=== PATIENT | female | born 1990 | race Caucasian/White ===

== ENCOUNTER 2023-02-17 22:25 | Observation (INO) | payer OTHER ==
[~2023-02-17] VITALS: Ht 160 cm; Wt 72.0 kg
[2023-02-18] VITALS (7 sets, daily range): BP systolic 103–114; BP diastolic 52–75; PULSE 68–75; TEMP 98–98.5
[2023-02-18] MEDS ORDERED: PROZAC 20MG20 MG PO (01:26)
[2023-02-18] MEDS ORDERED: PROAIR HFA0.09 MG/AC IH (01:27)
[2023-02-18 02:24] LABS: BASO % 0.6 % (0.0-2.0); EOS # 0.1 K/mm3 (0.0-0.7); EOS % 0.7 % (0.0-4.0); GRAN # 2.7 K/mm3 (1.4-6.5); GRAN % 39.3 % (42.2-75.2); LYMPH # 3.5 K/mm3 (1.2-3.4); MEAN CELL VOLUME 90 fl (80.0-100.0); MEAN CORPUSCULAR HEMOGLOBIN 32 pg (27-31); MEAN CORPUSCULAR HGB CONC 36 g/dl (33.0-37.0); MEAN PLATELET VOLUME 10.8 fl (7.4-10.4); MONO # 0.6 K/mm3 (0.1-0.6); MONO % 8.1 % (1.7-9.3); PLATELET COUNT 212 K/mm3 (130-400); RED BLOOD COUNT 4.05 M/mm3 (4.10-5.30); REDCELL DISTRIBUTION WIDTH-CV 11.6 % (11.5-14.5)
[2023-02-18] MEDS ORDERED: CROLOM 10 ML10 ML OP (02:26)
[2023-02-18 02:27] LABS: HEMATOCRIT 36.4 % (37.0-47.0)
[2023-02-18] MEDS ORDERED: EPIPEN 2-PAK1 MG/ML IM (02:27)
[2023-02-18 02:45] LABS: ANION GAP 7 mmol/L (7-16); BLOOD UREA NITROGEN 8 mg/dL (7-19); CALCIUM 8.3 mg/dL (8.4-10.2); CARBON DIOXIDE 21 mmol/L (22-29); CHLORIDE 113 mmol/L (98-107); CREATININE, serum 0.74 mg/dL (0.57-1.11); GLUCOSE 89 mg/dL (70-99); POTASSIUM 3.6 mmol/L (3.5-4.5); SODIUM 141 mmol/L (136-145)
[2023-02-18 03:07] LABS: TSH w REFLEX 3.632 uIU/mL (0.350-4.940)
[2023-02-18 03:09] LABS: TROPONIN-I < 0.010 ng/mL (0.00-0.033)
--- NOTE | 2023-02-18 05:15 | NUR ---
PT ARRIVED WITH NO COMPAINTS OF PAIN, ABLE TO AMBULATE APPROPRIATLY, VSS ON ARRIVAL. TELE APPLIED.
--- NOTE | 2023-02-18 06:17 | NUR ---
LEFT MESSAGE ON CELL REGARDING A CONSULT AND TO CALL CHARGE PHONE WHEN MESSAGE IS RECIEVED.
--- NOTE | 2023-02-18 08:51 | NUR ---
PATRICIO met with the patient to discuss discharge plan. The patient lives on [address] with her , Mahesh (ph#[phone]), and their daughter and son. She reports independence with ADLs and does not have any DME. The patient receives primary care and her medications from [facility]. The patient does not have a DPOA-HC and she was not interested in completing one at this time. The patient plans to return home with her family upon discharge. No additional needs at this time. *Discharge plan: home with family*
--- NOTE | 2023-02-18 09:26 | NUR ---
Patient is in the bed, watching TV, family at the bedside. Denies any pain, dizziness. Alert and oriented x 4, VSS. Telemetry in place, assessment completed, no further needs at this time. Call light within reach.
--- NOTE | 2023-02-18 11:14 | NUR ---
Initial visit: Clay Burner stopped by room on rounds. Pt was resting with and two of her children in the room. Pt has no needs right now. Clay Burner will follow up as needed.
--- NOTE | 2023-02-18 13:40 | NUR ---
Discharge orders rec'd. Telephone call made to Dr. Bishop to inform him that Dr. Tejada was in this morning to do consult on patient but patient was in the shower at the time. Per Dr. Bishop, pt to follow up with Dr. Tejada as an outpatient.
--- NOTE | 2023-02-18 14:10 | NUR ---
Patient was provided with discharge information, all questions answered. IV access and telemetry were discontinued. Pt was accompanied to the hospital entrane by RAYMON Farias, and family.
== END 2023-02-18 14:46 | disposition home or self-care (01) ==
LOC: MEDICAL 22:25
PROVIDERS: Nurse Practitioner Family; ADMIT Internal Medicine
DX: R55 Syncope and collapse (principal); G40.909 Epilepsy, unspecified, not intractable, without status epilepticus; M79.7 Fibromyalgia; J45.909 Unspecified asthma, uncomplicated; D89.40 Mast cell activation, unspecified; E04.1 Nontoxic single thyroid nodule; Z79.899 Other long term (current) drug therapy; Z87.892 Personal history of anaphylaxis
CPT/HCPCS: G0378